=== PATIENT | female | born 1960 | race Caucasian/White ===

== ENCOUNTER 2018-08-09 06:44 | Day surgery (SDC) | payer OTHER ==
[~2018-08-09 06:44] MED LIST: METROPOLOL PO; [UNRECOGNIZED DRUG - OTHER] PO
== END 2018-08-09 18:00 | disposition home or self-care (01) ==
LOC: CIR.AMB 06:44
DX: N39.3 Stress incontinence (female) (male) (principal)
CPT/HCPCS: 57288; C1771

== ENCOUNTER → 2018-11-27 | Emergency (ER) | payer OTHER ==
[~2018-11-27] VITALS: Ht 162.6 cm; Wt 83.5 kg
[~2018-11-27] MED LIST changes: +METOPROLOL TART50 MG
== END | disposition home or self-care (01) ==
LOC: ER 14:04
DX: K52.9 Noninfective gastroenteritis and colitis, unspecified (principal)

== ENCOUNTER 2020-12-19 09:22 | Outpatient (CLI) | payer OTHER | END 2020-12-19 13:47 | disposition home or self-care (01) | LOC: LAB 09:22 | PROVIDERS: ATTEND Internal Medicine Cardiovascular Disease | DX: I10 Essential (primary) hypertension (principal); E11.9 Type 2 diabetes mellitus without complications; E03.9 Hypothyroidism, unspecified; E55.9 Vitamin D deficiency, unspecified ==

== ENCOUNTER 2020-12-19 09:24 | Outpatient (CLI) | payer OTHER | END 2020-12-19 09:42 | disposition home or self-care (01) | LOC: RAD 09:24 | PROVIDERS: ATTEND Internal Medicine Cardiovascular Disease | DX: M12.9 Arthropathy, unspecified (principal) ==

== ENCOUNTER → 2021-03-18 | Outpatient (CLI) | payer OTHER | END | disposition home or self-care (01) | LOC: RAD 15:58 | DX: M79.671 Pain in right foot (principal) ==

== ENCOUNTER 2022-08-15 08:56 | Outpatient (CLI) | payer OTHER ==
[2022-08-15] MEDS ORDERED: FARXIGA10 MG PO (10:52)
[2022-08-15] MEDS ORDERED: ATORVASTATIN CA10 MG PO (10:52)
== END 2022-08-15 15:27 | disposition home or self-care (01) ==
LOC: LAB 08:56
PROVIDERS: ATTEND Orthopaedic Surgery Hand Surgery
DX: E11.65 Type 2 diabetes mellitus with hyperglycemia (principal); E78.2 Mixed hyperlipidemia; N39.0 Urinary tract infection, site not specified; E03.8 Other specified hypothyroidism; Z20.822 Contact with and (suspected) exposure to COVID-19; E78.00 Pure hypercholesterolemia, unspecified; E78.3 Hyperchylomicronemia; D65 Disseminated intravascular coagulation [defibrination syndrome]

== ENCOUNTER 2022-08-19 06:20 | Day surgery (SDC) | payer OTHER ==
[~2022-08-19 06:20] MED LIST changes: +ATORVASTATIN CA10 MG PO; +FARXIGA10 MG PO
== END 2022-08-19 15:55 | disposition home or self-care (01) ==
LOC: CIR.AMB 06:20
PROVIDERS: ATTEND Orthopaedic Surgery Hand Surgery
DX: M67.432 Ganglion, left wrist (principal); Z91.018 Allergy to other foods; I10 Essential (primary) hypertension; E78.00 Pure hypercholesterolemia, unspecified; E11.9 Type 2 diabetes mellitus without complications; Z88.5 Allergy status to narcotic agent